=== PATIENT | female | born 1995 | race Two or more races ===

== ENCOUNTER 2022-11-24 11:59 | Emergency (ER) | payer OTHER ==
[~2022-11-24] VITALS: Ht 165.1 cm; Wt 56.2 kg
[2022-11-24 16:13] LABS: HEMATOCRIT 40.2 % (36.0-45.00); HEMOGLOBIN 13.7 g/dL (12.0-15.00); MEAN CELL VOLUME 89.3 fL (80.00-100.00); MEAN CORPUSCULAR HEMOGLOBIN 30.4 pg (27.00-32.0); MEAN CORPUSCULAR HGB CONC 34.1 g/dl (32.0-36.0); PLATELET COUNT 174 K/uL (150-450); RED CELL DISTRIBUTION WIDTH 13.3 % (11.5-14.5)
== END 2022-11-24 19:07 | disposition home or self-care (01) ==
LOC: ER 11:59
PROVIDERS: General Practice
DX: B34.9 Viral infection, unspecified (principal); Z20.822 Contact with and (suspected) exposure to COVID-19

== ENCOUNTER 2024-11-26 16:49 | Emergency (ER) | payer OTHER ==
[~2024-11-26] VITALS: Ht 167.6 cm; Wt 59.9 kg
[2024-11-26] MEDS ORDERED: KETOROLAC TROMETHAMINE 60 MG VIAL IM ONE ×2 (17:42→17:45)
[2024-11-26] MEDS ORDERED: DEXAMETHASONE SODIUM PHOSPHATE 4 MG/ML VIAL ONE (17:42)
[2024-11-26] MEDS ORDERED: DEXAMETHASONE SODIUM PHOSPHATE 4 MG/ML VIAL IM ONE (17:45)
[2024-11-26] MEDS ORDERED: ORPHENADRINE CITRATE 100 MG TABLET PO ONE (17:45)
[2024-11-26] MEDS ORDERED: FEXMID7.5 MG PO (19:10)
[2024-11-26] MEDS ORDERED: NAPROXEN500 MG PO (19:10)
== END 2024-11-26 20:39 | disposition home or self-care (01) ==
LOC: ER 16:50
DX: M62.838 Other muscle spasm (principal)
CPT/HCPCS: 36415; 73030; 96372; 99283; J1100; J1885